=== PATIENT | male | born 1985 | race Caucasian/White ===

== ENCOUNTER 2024-01-24 06:22 | Day surgery (SDC) | payer OTHER, SELFPAY ==
[2024-01-24] VITALS (9 sets, daily range): BP systolic 117–138; BP diastolic 63–87; BMI 28.0
[2024-01-24] MEDS: NORMOSOL-R 1000 IV (09:01)
== END 2024-01-24 13:40 | disposition home or self-care (01) ==
LOC: SDS 06:22
PROVIDERS: ATTENDING PHYSICIAN Specialist
DX: Z30.2 Encounter for sterilization (principal)
CPT/HCPCS: 55250; 88302